=== PATIENT | female | born 1990 | race American Indian/Alaskan Native ===

== ENCOUNTER 2021-05-06 17:04 | Emergency (ER) | payer SELFPAY ==
[2021-05-06 18:20] VITALS: BP 120/68
[2021-05-06] MEDS ORDERED: ACETAMINOPHEN 325 MG TAB PO STA (18:36)
--- NOTE | 2021-05-06 18:37 | Emergency Department Report ---
<JOSE M LANDRY - Last Filed: 05/06/21 21:33> ED General Adult HPI - General Chief complaint: Abdominal Pain Stated complaint: 15 W/5D PREG W PRESSURE IN UTERUS Time Seen by Provider: 05/06/21 18:27 - Related Data Allergies Allergy/AdvReac Type Severity Reaction Status Date / Time No Known Allergies Allergy Verified 05/06/21 18:20 ED Medical Decision Making - Lab Data Result diagrams: 05/06/21 18:42 - Radiology Data Radiology results: report reviewed Patient Name: KENZIE YUSUF Gender: Female Date of : 1990 Referring Provider: MERCED SACUEDO Organization: [facility] Accession Number: [id number] Requested Date: May 06, 2021 18:36 Report Status: Final Requested Procedure: 1 Procedure Description: US OB >= 14 weeks Fetus Modality: US Findings Reporting MD: Bhavesh Freire Dictation Time: May 06, 2021 19:55 Clinical Radiologist: Not available Pathology Secretary Date: ULTRASOUND OBSTETRIC INDICATION / CLINICAL INFORMATION: w abdominal pressure. Clinical Gestational Age (GA) in weeks, days: 15 weeks 5 days TECHNIQUE: Transabdominal. COMPARISON: None available. FINDINGS: Single intrauterine . Biparietal Diameter = 3.4 cm = 16, 4 weeks, days Head Circumference = 13.0 cm = 16, 4 weeks, days Abdominal Circumference = 10.0 cm = 16, 0 weeks, days Femur Length = 2.0 cm = 15, 6 weeks, days Average Ultrasound Age (AUA) = 16 weeks 2 days Heart Rate: 149 beats per minute. Estimated Weight in grams (if calculated): 143 Estimated Weight Growth Percentile (if calculated): 63% Position: breech. Cervix: closed. Length in cm (if measured): 4.9 cm Placenta: anterior and free of the os. Grade 0 placenta. Amniotic Fluid Volume: normal Amniotic Fluid Index (MALENA) in cm (if calculated): Not calculated. Maternal Adnexa: No significant abnormality. IMPRESSION: 1. Single, living intrauterine with estimated sonographic age of 16 weeks 2 days. 2. No significant sonographic abnormality. Signer Name: Bhavesh Freire MD - Medical Decision Making This is a 30-year-old female who is according to ultrasound 16 weeks 2 days . She presents with suprapubic pressure sensation. Clinical impression round ligament pain of . CBC without leukocytosis. Urinalysis contaminated without bacteria or nitrites. Complex interventions. Recommended Tylenol and heating pad. I evaluated patient upon discharge. She is ambulatory without hesitation. I do not suspect acute inflammatory process such as appendicitis. 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 Bull Mendez. ED Disposition Clinical Impression: Pain of round ligament affecting , antepartum Disposition: HOME / SELF CARE / HOMELESS Is pt being admited?: No Does the pt Need Aspirin: No Condition: Stable Instructions: Round Ligament Pain, Abdominal Pain During , [id number], Abdominal Pain (ED) Referrals: PRIMARY CARE, [Primary Care Provider] - 3-5 Days <MERCED SAUCEDO - Last Filed: 05/10/21 05:36> ED General Adult HPI - General PUI?: No Source: patient, RN notes reviewed Mode of arrival: Ambulatory Limitations: No Limitations - History of Present Illness Initial comments: The patient is a pleasant 30-year-old female. She is not known to myself previously. She is 3, para 2. She denies chronic medical conditions and medical history, and reports that she is approximately 15 weeks . She presents to the ER today with a complaint of suprapubic abdominal pressure. This is intermittent. It worsens when she sits up, and worsens when she rides in a bumpy bus. She denies headache, neck pain, chest pain, right lower quadrant abdominal pain, nausea, vomiting and diarrhea, urinary symptoms, vaginal bleeding, and vaginal discharge. Her last ultrasound is approximately 4 to 5 weeks ago, and she reports it was "okay." The patient has not taken any pain medication at home, "because I was not sure what was safe to take." The patient denies additional injuries and complaints. -: Gradual, days(s) Location: abdomen Radiation: non-radiation Quality: other (Pressure-like in nature) Consistency: intermittent Improves with: other Worsens with: other ED Review of Systems ROS: Stated complaint: 15 W/5D PREG W PRESSURE IN UTERUS Other details as noted in HPI Comment: All other systems reviewed and negative Gastrointestinal: as per HPI. denies: nausea, vomiting, diarrhea Genitourinary: denies: dysuria ED Physical Exam - General Limitations: No Limitations General appearance: alert, in no apparent distress - Head Head exam: Present: atraumatic, normocephalic - Eye Eye exam: Present: normal appearance, EOMI. Absent: nystagmus - ENT ENT exam: Present: normal exam, normal orophraynx, mucous membranes moist, normal external ear exam - Neck Neck exam: Present: normal inspection, full ROM. Absent: tenderness, meningismus - Respiratory Respiratory exam: Present: normal lung sounds bilaterally. Absent: respiratory distress, wheezes, rales, rhonchi, stridor, decreased breath sounds - Cardiovascular Cardiovascular Exam: Present: regular rate, normal rhythm, normal heart sounds. Absent: bradycardia, tachycardia, irregular rhythm, systolic murmur, diastolic murmur, rubs, gallop - GI/Abdominal GI/Abdominal exam: Present: soft, other (There is no right lower quadrant tenderness. There is a negative Smith sign. There is negative Rovsing sign). Absent: distended, tenderness, guarding, rebound, rigid, pulsatile mass - Extremities Exam Extremities exam: Present: normal inspection, full ROM, other (2+ pulses noted in the bilateral upper and lower extremities. There is no palpable cord. negative Homans sign. Muscular compartments are soft. The pelvis is stable.). Absent: pedal edema, calf tenderness - Back Exam Back exam: Present: normal inspection, full ROM. Absent: tenderness, CVA tenderness (R), CVA tenderness (L), paraspinal tenderness, vertebral tenderness - Neurological Exam Neurological exam: Present: alert, oriented X3, normal gait, other (No facial droop. Tongue midline. Extraocular movements intact bilaterally. Facial sensation intact to light touch in V1, V2, V3 distribution bilaterally. 5 and a 5 strength in 4 extremities. Sensation intact to light touch in 4 extremities.). Absent: motor sensory deficit - Psychiatric Psychiatric exam: Present: normal affect, normal mood - Skin Skin exam: Present: warm, dry, intact, normal color. Absent: rash ED Course Vital Signs 05/06/21 05/06/21 05/06/21 18:18 18:49 21:55 Temperature 98.2 F Pulse Rate 87 68 Respiratory 14 16 15 Rate Blood Pressure 120/68 [Left] O2 Sat by Pulse 100 100 Oximetry - Reevaluation(s) Reevaluation #1: 05/06/21 19:10 Differential diagnosis, including but not limited to: Round ligament pain, subchorionic bleed, bacteriuria, constipation, ovarian cyst Assessment and plan: 30-year-old female, who was afebrile, with reassuring vital signs, with no abdominal tenderness, rebound or guarding, who was on a cellular phone when I walked into the room, in no acute distress, experiencing nonspecific suprapubic abdominal cramping, worsened with bumpy car rides, and decreases with position. Check CBC, urinalysis, ultrasound. Treat with Tylenol. Reassess after initial data points. I discussed this with the patient. She articulated understanding. She is agreeable to this plan of care 05/06/21 19:36 Care will be transferred to the oncoming ER physician, to follow-up on ultrasound, urinalysis, and remainder of diagnostic studies/laboratory studies. Presuming no acute or emergent findings, it would be reasonable to discharge this patient with as needed Tylenol, weightbearing as tolerated, avoidance of heavy lifting, and outpatient follow-up with her outpatient [employer] physician ED Medical Decision Making - Lab Data Result diagrams: 05/06/21 18:42 Vital Signs 05/06/21 05/06/21 18:18 18:49 Temperature 98.2 F Pulse Rate 87 Respiratory 14 16 Rate Blood Pressure 120/68 [Left] O2 Sat by Pulse 100 Oximetry Critical care attestation.: If time is entered above; I have spent that time in minutes in the direct care of this critically ill patient, excluding procedure time. ED Disposition Is pt being admited?: No Does the pt Need Aspirin: No
[2021-05-06 19:02] LABS: Hematocrit 35.3 % (30.3-42.9); Hemoglobin 11.7 gm/dl (10.1-14.3); Mean Corpuscular HGB Conc 33 % (30-34); Mean Corpuscular Volume 97 fl (79-97); Platelet Count 245 K/mm3 (140-440); Red Blood Count 3.66 M/mm3 (3.65-5.03)
[2021-05-06 20:06] LABS: Bilirubin,Urine NEG (Negative); Blood,Urine NEG (Negative); Color,Urine Yellow (Yellow); Mucus,Urine FEW /HPF; Protein,Urine <15 mg/dL mg/dL (Negative)
--- NOTE | 2021-05-06 20:59 | Ultrasound Report ---
ULTRASOUND OBSTETRIC INDICATION / CLINICAL INFORMATION: w abdominal pressure. Clinical Gestational Age (GA) in weeks, days: 15 weeks 5 days TECHNIQUE: Transabdominal. COMPARISON: None available. FINDINGS: Single intrauterine . Biparietal Diameter = 3.4 cm = 16, 4 weeks, days Head Circumference = 13.0 cm = 16, 4 weeks, days Abdominal Circumference = 10.0 cm = 16, 0 weeks, days Femur Length = 2.0 cm = 15, 6 weeks, days Average Ultrasound Age (AUA) = 16 weeks 2 days Heart Rate: 149 beats per minute. Estimated Weight in grams (if calculated): 143 Estimated Weight Growth Percentile (if calculated): 63% Position: breech. Cervix: closed. Length in cm (if measured): 4.9 cm Placenta: anterior and free of the os. Grade 0 placenta. Amniotic Fluid Volume: normal Amniotic Fluid Index (MALENA) in cm (if calculated): Not calculated. Maternal Adnexa: No significant abnormality. IMPRESSION: 1. Single, living intrauterine with estimated sonographic age of 16 weeks 2 days. 2. No significant sonographic abnormality. Signer Name: Bhavesh Freire MD Signed: 05/06/2021 8:55 PM Workstation Name: [id number][id number]
== END 2021-05-06 21:50 | disposition home or self-care (01) ==
LOC: ED 17:04
DX: O26.891 Other specified pregnancy related conditions, first trimester (principal); R10.30 Lower abdominal pain, unspecified; Z3A.16 16 weeks gestation of pregnancy
CPT/HCPCS: 36415; 76805; 81001; 84702; 85027; 86850; 86900; 86901; 99284